=== PATIENT | female | born 1995 | race Two or more races ===

== ENCOUNTER → 2024-08-24 | Outpatient (CLI) | payer MEDICAID, SELFPAY ==
--- NOTE | 2024-08-24 10:28 | XR_ITS ---
Examination: Shoulder,right, 3 views Technique: Shoulder AP internal rotation, AP external rotation, Y view shoulder, 3 views Exam date and time :August 24, 2024 1134 hours INDICATIONS: Patient fell 5 days ago with into the shoulder, shoulder pain. FINDINGS: No shoulder fracture or dislocation No residual separation IMPRESSION: No shoulder fracture or dislocation Repeat this study in 2-3 days as clinically warranted
== END | disposition home or self-care (01) ==
LOC: SDIM 10:19
PROVIDERS: PCP Nurse Practitioner Family; Referring Provider Nurse Practitioner; Visit Provider Nurse Practitioner
DX: M25.511 Pain in right shoulder (principal)
CPT/HCPCS: 73030